=== PATIENT | female | born 1955 | race Caucasian/White ===

== ENCOUNTER 2024-10-06 15:26 | Emergency (ER) | payer OTHER, SELFPAY ==
[2024-10-06 15:26] VITALS: BP 151/90; PULSE 57; RESP 20; TEMP 37; O2SAT 96; BMI 58.5
--- NOTE | 2024-10-06 15:30 | PC.NURSE ---
Pt able to ambulate from EMS stretcher to triage chair with 4 wheel-walker with standby assist.
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
--- NOTE | 2024-10-06 16:11 | DI.RAD.S_ITS ---
PROCEDURE: XR HIP W PEL IF DONE RT 2V INDICATIONS: low back and R hip pain from twisting injury yesterday TECHNIQUE: AP pelvis with lateral view(s) of the right hip(s). COMPARISON: None. FINDINGS: Bones: No fractures or dislocations. Pelvic ring appears intact. No suspicious bony lesions. Soft tissues: The visualized bowel gas pattern is normal. No suspicious soft tissue calcifications. IMPRESSION: No acute bony abnormality. Dictated by: Mercy Springer M.D. on 10/06/2024 at 16:17 Approved by: Mercy Springer M.D. on 10/06/2024 at 16:18
--- NOTE | 2024-10-06 16:11 | DI.RAD.S_ITS ---
PROCEDURE: XR LUMBAR SPINE 2-3V INDICATIONS: low back and R hip pain from twisting injury yesterday TECHNIQUE: 3 views of the lumbar spine were acquired. COMPARISON: None. FINDINGS: Bones: 5 [id number] vertebrae are present. Grade 1 anterolisthesis of L4 on L5. There is otherwise normal bony alignment. No vertebral body compression fractures. No suspicious bony lesions. Lower lumbar facet arthropathy is present. Soft tissues: Overlying bowel gas pattern is normal. No suspicious soft tissue calcifications. IMPRESSION: No acute bony abnormality. Dictated by: Mercy Springer M.D. on 10/06/2024 at 16:18 Approved by: Mercy Springer M.D. on 10/06/2024 at 16:22
[2024-10-06 16:21] LABS: Influenza A - CEPHEID Flu A NEGATIVE (NEGATIVE); Influenza B - CEPHEID Flu B NEGATIVE (NEGATIVE); Respiratory Syncytial Virus Negative (Negative)
[2024-10-06 16:23] LABS: COVID-19 CEPHEID 4-PLEX PCR Negative (Negative)
[2024-10-06] MEDS: LIDOCAINE 5% PATCH 1 EACH TOP (16:47)
[2024-10-06] MEDS: TRAMADOL 50 MG TABLET PO (16:47)
--- NOTE | 2024-10-06 16:57 | PC.NURSE ---
late entry from triage, patient states she had a cold for a few days and today sounds hoarse but feels better.
--- NOTE | 2024-10-06 17:17 | PC.NURSE ---
Pt resting on stretcher as this RN entered room. Pt awoke once this RN started speaking with pt, pt c/o pain to right leg, RA, A&Ox4, breathing even/equal/unlabored at this time. Updated provider, updated pt, call light within reach, no other needs at this time
[2024-10-06] MEDS: KETOROLAC 30 MG/ML VIAL IM (18:18)
[2024-10-06] MEDS: ACETAMINOPHEN 325 MG TABLET 975 MG PO (18:19)
[2024-10-06 19:11] VITALS: BP 184/78; PULSE 61; RESP 18; O2SAT 98
[2024-10-06 19:12] LABS: Bacteria Urine Occasional (0-1); RBC Urine 0-1/HPF (0-5/HPF); Squamous Epithelial Cell Urine 0-1 /HPF (0-5/HPF); Urine Volume 10mL (spun); WBC Urine 1-5/HPF (0-5/HPF)
--- NOTE | 2024-10-06 19:21 | DI.CT.S_ITS ---
PROCEDURE: CT ABDOMEN PELVIS WO CON INDICATIONS: low back pain TECHNIQUE: CT of the abdomen and pelvis was obtained without intravenous contrast. Coronal and sagittal reformats were performed. For radiation dose reduction, the following was used: automated exposure control, adjustment of mA and/or kV according to patient size. COMPARISON: [facility], CR, XR HIP W PEL RT 2V, 10/06/2024, 16:08. [facility], CR, XR LUMBAR SPINE 2-3V, 10/06/2024, 16:08. FINDINGS: Image quality: Diagnostic. Lower Chest: No significant findings. ABDOMEN: Liver: No contour-deforming mass. Gallbladder: Removed. Biliary ducts: No biliary dilation. Pancreas: No ductal dilation. Spleen: Size is within normal limits. Adrenal Glands: No adrenal nodules. Kidneys and Ureters: No hydronephrosis. No contour-deforming mass. Stomach and Bowel: Normal colonic caliber, without significant wall thickening. Peritoneum: No abnormal intraperitoneal fluid. No free air. Ventral Wall: No significant hernia. Abdominal Nodes: No retroperitoneal or mesenteric adenopathy by size criteria. Vessels: Aorta and inferior vena cava are normal in size. PELVIS: Pelvic Organs: Unremarkable. Bladder: Unremarkable. Pelvic Nodes: No enlarged lymph nodes. Miscellaneous: No inguinal hernias are seen. Bones: No aggressive osseous abnormality. Degenerative changes are present within the thoracolumbar spine. IMPRESSION: No visualized acute cause of back pain. Thoracolumbar degenerative changes are present. Dictated by: Melissa Oseguera M.D. on 10/06/2024 at 19:44 Approved by: Melissa Oseguera M.D. on 10/06/2024 at 19:47
[2024-10-06] MEDS: methocarbamoL 500 MG TABLET PO (20:00)
[2024-10-06 20:17] VITALS: BP 192/94; PULSE 62; RESP 18; O2SAT 98
== END 2024-10-06 20:18 | disposition home or self-care (01) ==
PROVIDERS: Family Medicine; Physician Assistant; Emergency Provider Emergency Medicine
DX: M54.16 Radiculopathy, lumbar region (principal); M43.16 Spondylolisthesis, lumbar region
CPT/HCPCS: 0241U; 72100; 73502; 74176; 81003; 81015; 87077; 87086; 87186; 96372; 99284; J1885